=== PATIENT | male | born 1960 | race Caucasian/White ===

== ENCOUNTER 2016-08-05 19:09 | Inpatient (IN) | payer OTHER ==
[~2016-08-05] VITALS: Ht 185.4 cm; Wt 95.3 kg
--- NOTE | ~2016-08-05 | D ---
[facility] [place] [address] DISCHARGE SUMMARY Name: CHIDI LAEXANDER Room #: 404-P [facility] IN M.R.#: [id number] Admission: 08/05/16 Attend Phys: Darya Fishman MD Discharge: 08/07/16 Date of : 60 Report #: [id number] THIS REPORT FOR: //name// CC: Darya Hernández DATE OF SERVICE: 08/07/2016 DATE OF ADMISSION: 08/05/2016 DATE OF DISCHARGE: 08/07/2016 DISCHARGE DIAGNOSES: 1. Small-bowel obstruction, now resolved. 2. Crohn's exacerbation. 3. Transaminitis, likely secondary to above. CONSULTS: GI, Dr. Gates. PROCEDURES: None. HOSPITAL COURSE: The patient is a 56-year-old male with a history of Crohn's disease. Followed up with Dr. Cole, presented to the ER secondary to abdominal pain. Please see details of the admission dictated by Dr. Ramya Pino on August 05. Workup in the ER consisted of a CT scan that showed partial small-bowel obstruction with transition down appearing just left to the midline, also cholelithiasis without bile duct dilatation. His white count was also 13, AST was 83, and ALT was 95. Total bilirubin is 0.7. The patient was admitted for partial small-bowel obstruction and Crohn's exacerbation. GI was consulted. The patient was initially started on bowel rest, antiemetics, IV fluids, and pain control. He was also started on high dose steroids as well. Over the course of 24-48 hours, his symptoms improved remarkably. On discharge, he was able to tolerate his diet and no further pain and was able to have a bowel movement. He denied any complaints and was anxious to go home. DISCHARGE DISPOSITION: To home. DISCHARGE PHYSICAL EXAMINATION: VITAL SIGNS: Temperature of 36.4, pulse ____, blood pressure is 109/64, and O2 saturation 96% on room air. GENERAL: He is awake, alert, answering questions appropriately, no acute respiratory distress. CARDIOVASCULAR: Regular rate and rhythm. No murmurs. LUNGS: Clear to auscultation bilaterally. No crackles or wheezes. ABDOMEN: Soft, no distention or tenderness. EXTREMITIES: No edema. [address] [address] DISCHARGE SUMMARY Name: CHIDI ALEXANDER THURMOND Room #: 404-P [facility] IN M.R.#: [id number] Admission: 08/05/16 Attend Phys: Darya Fishman MD Discharge: 08/07/16 Date of : 60 Report #: [id number] NEUROLOGIC: Nonfocal. DISCHARGE MEDICATIONS: [place] p.r.n., Zofran p.r.n., prednisone high dose taper, vitamin B12 of 1000 mcg daily, Vyvanse 70 mg daily, and ____ as previously taken. DIET: Regular diet as tolerated. ACTIVITY: As tolerated. FOLLOWUP: Follow up CBC and CMP in 1 week. Follow up with primary care in 1 week. Follow up with GI in 2 weeks and to seek immediate medical attention if symptoms worsen or recur or if he has any significant medical concerns. Discharge plan took 40 minutes. I explained to him his discharge diagnosis, treatment plan, and appropriate followup in detail. He had no further questions. <ELECTRONICALLY SIGNED> By: Darya Fishman MD 09/15/16 [id number] Darya Fishman MD /nt
[~2016-08-05 19:09] MED LIST: AZASAN100 MG PO; AZASAN75 MG PO; BENADRYL25 MG PO; CIPRO500 MG PO; FLAGYL500 MG PO; HYDROCODONE-AP1 EAC6 PO; KAPIDEX60 MG PO; NORCO 5-325 TA1 EACH PO; OMEPRAZOLE 20 M20 M1 PO; ONDANSETRON HCL4 M2 PO; PREDNISONE 10 M10 MG PO; PREDNISONE 20 M20 MG PO; PROBIOTIC1 EAC1 PO; VYVANSE70 MG PO
[2016-08-05 19:10] VITALS: BP 158/99
[2016-08-05 19:46] LABS: ABSOLUTE NEUTROPHILS 11.3 thou/uL (1.4-8.2); BASOPHILS 0.6 % (0.0-2.0); EOSINOPHILS 0.7 % (0.0-3.0); HEMATOCRIT 46.3 % (42.0-52.0); HEMOGLOBIN 16.3 gm/dL (14.0-18.0); LYMPHOCYTES 7.1 % (24.0-44.0); MCH 35.2 pg (26.0-34.0); MCHC 35.2 % (28.0-37.0); MCV 99.8 fL (80.0-100.0); MONOCYTES 5.2 % (1.0-8.0); PLATELET COUNT 216 thou/uL (150-400); POLYS 86.4 % (36.0-66.0); RBC 4.64 mil/uL (4.50-6.00); RDW 12.4 % (10.5-14.5)
[2016-08-05 19:51] LABS: MANUAL DIFF NO
[2016-08-05 19:56] LABS: CALCIUM 9.3 mg/dL (8.5-10.1); CREATININE 1.2 mg/dL (0.6-1.3); POTASSIUM 3.9 mmol/L (3.5-5.1)
[2016-08-05 20:02] LABS: ALBUMIN 4.3 g/dL (3.4-5.0); DIRECT BILIRUBIN 0.2 mg/dL (<0.1-0.3); TOTAL BILIRUBIN 0.7 mg/dL (<0.1-1.0); TOTAL PROTEIN 7.9 g/dL (6.4-8.2)
[2016-08-05] MEDS ORDERED: PREDNISONE 20 M20 MG PO (20:29)
[2016-08-05 22:22] VITALS: BP 150/88
[2016-08-05 22:50] VITALS: BP 144/98
[2016-08-05] MEDS ORDERED: ENTYVIO300 MG (23:07)
[2016-08-06 03:50] VITALS: BP 125/87
[2016-08-06 05:56] LABS: HEMATOCRIT 45.7 % (42.0-52.0); HEMOGLOBIN 15.5 gm/dL (14.0-18.0); MCH 34.6 pg (26.0-34.0); MCV 101.8 fL (80.0-100.0); RBC 4.49 mil/uL (4.50-6.00); RDW 12.4 % (10.5-14.5); WBC 11.9 thou/uL (4.0-11.0)
[2016-08-06 09:45] VITALS: BP 134/93
[2016-08-06 12:14] VITALS: BP 125/76
[2016-08-06 15:43] VITALS: BP 123/84
[2016-08-06 19:40] VITALS: BP 124/79
[2016-08-07 03:20] VITALS: BP 122/81
[2016-08-07 05:10] LABS: HEMOGLOBIN 13.3 gm/dL (14.0-18.0); MCH 34.4 pg (26.0-34.0); MCHC 33.3 % (28.0-37.0); MCV 103.2 fL (80.0-100.0); RBC 3.88 mil/uL (4.50-6.00); RDW 12.9 % (10.5-14.5); WBC 18.3 thou/uL (4.0-11.0)
[2016-08-07 05:37] LABS: ALBUMIN 3.4 g/dL (3.4-5.0); DIRECT BILIRUBIN 0.1 mg/dL (<0.1-0.3); TOTAL BILIRUBIN 0.5 mg/dL (<0.1-1.0); TOTAL PROTEIN 6.5 g/dL (6.4-8.2)
[2016-08-07 08:00] VITALS: BP 109/64
[2016-08-07] MEDS ORDERED: HYDROCODONE-APA1 TA1 PO (13:51)
[2016-08-07] MEDS ORDERED: PREDNISONE 10 M10 MG PO (13:55)
[2016-08-07] MEDS ORDERED: ZOFRAN ODT4 MG DISSOLVE (13:55)
[2016-08-07] MEDS ORDERED: VITAMIN B-12500 MCG PO (13:56)
[2016-08-07 14:01] VITALS: BP 109/64
== END 2016-08-07 17:03 | disposition home or self-care (01) | DRG 386 ==
LOC: ER 19:09 → EROBS 21:07 → 4N 21:07
PROVIDERS: Emergency Medicine; Internal Medicine Gastroenterology
DX: K50.012 Crohn's disease of small intestine with intestinal obstruction (principal); R74.0 Nonspecific elevation of levels of transaminase and lactic acid dehydrogenase [LDH]; K21.9 Gastro-esophageal reflux disease without esophagitis; F17.210 Nicotine dependence, cigarettes, uncomplicated; I10 Essential (primary) hypertension; K80.20 Calculus of gallbladder without cholecystitis without obstruction; F90.9 Attention-deficit hyperactivity disorder, unspecified type; Z80.0 Family history of malignant neoplasm of digestive organs; Z98.890 Other specified postprocedural states; Z80.7 Family history of other malignant neoplasms of lymphoid, hematopoietic and related tissues
CPT/HCPCS: 10091

== ENCOUNTER 2016-10-08 06:07 | Emergency (ER) | payer OTHER ==
[~2016-10-08] VITALS: Ht 185.4 cm; Wt 90.7 kg
[~2016-10-08 06:07] MED LIST changes: +ENTYVIO300 MG; +HYDROCODONE-APA1 TA1 PO; +VITAMIN B-12500 MCG PO; +ZOFRAN ODT4 MG DISSOLVE
[2016-10-08 06:36] LABS: ABSOLUTE NEUTROPHILS 6.8 thou/uL (1.4-8.2); BASOPHILS 1.1 % (0.0-2.0); EOSINOPHILS 2.6 % (0.0-3.0); HEMATOCRIT 46.4 % (42.0-52.0); HEMOGLOBIN 16.3 gm/dL (14.0-18.0); LYMPHOCYTES 13.2 % (24.0-44.0); MCH 35.1 pg (26.0-34.0); MCHC 35.1 g/dL (28.0-37.0); MCV 100.1 fL (80.0-100.0); MONOCYTES 8.2 % (1.0-8.0); PLATELET COUNT 239 thou/uL (150-400); POLYS 74.9 % (36.0-66.0); RBC 4.63 mil/uL (4.50-6.00); RDW 13.5 % (10.5-14.5); WBC 9.1 thou/uL (4.0-11.0)
[2016-10-08 06:39] LABS: MANUAL DIFF NO
[2016-10-08 06:52] LABS: CALCIUM 8.9 mg/dL (8.5-10.1); CREATININE 1.2 mg/dL (0.6-1.3); POTASSIUM 3.9 mmol/L (3.5-5.1)
[2016-10-08 06:58] LABS: ALBUMIN 3.7 g/dL (3.4-5.0); DIRECT BILIRUBIN 0.1 mg/dL (<0.1-0.3); TOTAL BILIRUBIN 0.6 mg/dL (<0.1-1.0)
[2016-10-08] MEDS ORDERED: PREDNISONE 10 M10 MG PO (08:18)
[2016-10-08] MEDS ORDERED: ZOFRAN ODT4 MG PO (08:18)
[2016-10-08] MEDS ORDERED: NORCO 5-325 TA1 EACH PO (08:18)
[2016-10-08] MEDS ORDERED: PHENERGAN 25 MG25 M1 PO (08:18)
== END 2016-10-08 08:33 | disposition home or self-care (01) ==
LOC: ER 06:07
PROVIDERS: Emergency Medicine
DX: K50.90 Crohn's disease, unspecified, without complications (principal); K56.69 Other intestinal obstruction; F17.210 Nicotine dependence, cigarettes, uncomplicated; Z90.89 Acquired absence of other organs; Z85.828 Personal history of other malignant neoplasm of skin